=== PATIENT | female | born 1950 | race Caucasian/White ===

== ENCOUNTER 2019-11-03 13:25 | Emergency (ER) | payer SELFPAY ==
[~2019-11-03] VITALS: Ht 160 cm; Wt 68.0 kg
[2019-11-03] MEDS ORDERED: BACITRACIN ZINC OINT UDPKT TOP SCH (15:15)
[2019-11-03] MEDS ORDERED: TETANUS, DIPHTHERIA, PERTUSSIS VAC/PF 0.5ML (>7YR OLD) IM ONE (15:15)
[2019-11-03] MEDS ORDERED: ACETAMINOPHEN 500MG TABLET PO SCH ×2 (16:00→18:00)
[2019-11-03] MEDS ORDERED: LIDOCAINE HCL/PF 1% 10 MG/ML 5ML VIAL IJ SCH ×2 (16:00→18:00)
[2019-11-03] MEDS ORDERED: CEFTRIAXONE SODIUM 1 G/VIAL IM NR (17:14)
[2019-11-03] MEDS ORDERED: LIDOCAINE HCL 1% 20ML VIAL (Pyxis) INJ INFIL NR (17:15)
[2019-11-03 17:21] VITALS: BP 149/74
== END 2019-11-03 17:30 | disposition home or self-care (01) ==
LOC: ER 13:25
DX: S62.664B Nondisplaced fracture of distal phalanx of right ring finger, initial encounter for open fracture (principal); W23.0XXA Caught, crushed, jammed, or pinched between moving objects, initial encounter; Y93.89 Activity, other specified; Y92.89 Other specified places as the place of occurrence of the external cause; I10 Essential (primary) hypertension; E78.00 Pure hypercholesterolemia, unspecified; Z79.899 Other long term (current) drug therapy
CPT/HCPCS: 12001; 73140; 96372; 99283; J0696; J3490; 90715